=== PATIENT | female | born 1960 | race Asian ===

== ENCOUNTER 2021-07-16 06:59 | Day surgery (SDC) | payer OTHER ==
[2021-07-14 08:41] LABS: COVID AG,FIA SOURCE NASOPHARYNGEAL
[~2021-07-16] VITALS: Ht 144.8 cm; Wt 47.7 kg
[~2021-07-16 06:59] MED LIST: AMLO-257 PO; BIOT5TAB PO; FLAX100020 PO; LOSA1TAB37 PO; METF-1211 PO; PANT40TA54 PO; ROSU10TA72 PO; SODIUM CHLORIDE 0.9% 1,000 ML IV ONE
[2021-07-16] MEDS ORDERED: SODIUM CHLORIDE 0.9% 1,000 ML ONE (07:18)
[2021-07-16 08:07] LABS: GLUCOMETER DEV NAME(LOC) SDS.; GLUCOSE,POINT OF CARE 101 MG/DL (70-110)
[2021-07-16] MEDS ORDERED: EPINEPHrine 1:10,000 [1 MG/10 ML] SYRINGE ONE (11:43)
[2021-07-16] MEDS ORDERED: PROPOFOL 1% 20 ML VIAL IVP ONE (12:00)
[2021-07-16] MEDS ORDERED: OXYGEN THERAPY IH SCH (20:00)
== END 2021-07-16 11:40 | disposition home or self-care (01) ==
LOC: SURGERY 06:59
PROVIDERS: ATTEND Specialist
DX: K31.7 Polyp of stomach and duodenum (principal); I10 Essential (primary) hypertension; E11.9 Type 2 diabetes mellitus without complications; D64.9 Anemia, unspecified; Z79.899 Other long term (current) drug therapy; E78.00 Pure hypercholesterolemia, unspecified
CPT/HCPCS: 43251; 82962; 87426; 88305; 88312; 88313; C1769; C9803; J0171; J2704; J7030